=== PATIENT | male | born 1940 | race Caucasian/White ===

== ENCOUNTER 2024-02-20 18:31 | Inpatient (IN) | payer MEDICARE, OTHER, SELFPAY ==
[2024-02-20] VITALS (12 sets, daily range): BP systolic 98–129; BP diastolic 53–63; BMI 25.7
--- NOTE | 2024-02-20 09:33 | ED.GENMED ---
History of Present Illness
<MCKAY Schrader - Last Filed: 02/20/24 17:38>
General
Chief Complaint: Cold/Flu/URI Symptoms
Source: patient
Exam Limitations: none
Time Seen by Provider: 02/20/24 09:14
Nursing documentation reviewed up to this point in time: agreed with
Travel History
Have you had any contact with someone who has COVID-19?: No
Do you have any symptoms of coronavirus? Fever > 100 degrees, chills, cough, shortness of breath, sore throat, loss of taste or smell, muscle aches, or headache?: No
History of Present Illness
History of Present Illness:
Patient is an 83-year-old male with past medical history of COPD osteomyelitis of spine mitral valve issues CAD, high cholesterol ubg-kkknece-gbqounlzy diabetes, HiV presents to the ER for evaluation. Patient reports 6 days ago he started
lightheadedness weakness runny nose and cough. He has had subjective fevers complaining of chills and achiness. He wakes up in a sweat at night. He does have a nonproductive cough. He has had intermittent diarrhea. He reports he had 4 episodes
of liquid diarrhea last night. He also complains of pain to the right hip only when he lays on the right hip he is able to walk on the hip without difficulty. He was concerned about this hip because he does have a history of osteomyelitis in the
spine years ago. He lives part-time in [facility] part-time in [place] and has not been to this hospital previously.
He did a COVID test at home which was negative.
Review of Systems
<MCKAY Schrader - Last Filed: 02/20/24 17:38>
Review of Systems
Allergies reviewed?: Yes
All Other Systems: ROS reviewed and negative except as documented in HPI and ROS
Constitutional: Reports fever (subjective fevers ), fatigue and chills
EENT: Reports runny nose
Respiratory: Reports cough; Denies trouble breathing
Cardiac: Reports no symptoms
ABD/GI: Reports diarrhea
: Reports no symptoms
Musculoskeletal: Reports other (right hip pain )
Skin: Reports no symptoms
Neurological: Reports no symptoms
Psychiatric: Reports no symptoms
Phy Exam
<MCKAY Schrader - Last Filed: 02/20/24 17:38>
General Physical Exam
General Presentation: well appearing
General age: appears stated age
General Skin: warm and dry
General Habitus: normal
General Mental: alert
General Hydration: dry mucous membranes
Eye Exam
Eye Exam: PERRL and EOMI
Eye Exam General: PERRL: bilateral and EOM intact: bilateral
Pupil Exam: Bilateral: round and reactive
Cardiovascular Exam
Cardiovascular Exam: regular rate/rhythm, no murmur and normal peripheral pulses
Pulmonary Exam
Pulmonary Exam: lungs clear and no respiratory distress
Neurological Exam
Neurological Exam: alert and oriented x3
Musculoskeletal Exam
Musculoskeletal Exam: other (Full range of motion to right hip with no erythema to hip no pain)
Skin Exam
Skin Exam: normal color and warm/dry
Psychiatric Exam
Psychiatric Exam: normal mood/affect
Course
<MCKAY Schrader - Last Filed: 02/20/24 17:38>
Orders/Labs/Results
Orders:
Orders
02/20/24 09:34
Electrocardiogram (*1) Urgent
Reason for Study: Other
Other Reason for Exam: sepsis
Cardiac Monitoring- Treatment ONCE
EKG- Treatment ONCE
IV Insert/Care/Rem.- Treatment PRN
CR Chest - 2 Views Urgent
Comment:
Reason For Exam: cough /fever
02/20/24 09:36
0.9% Sodium Chloride 1000 ml [Nss] 1,000 ml IV BOLUS
02/20/24 09:41
COVID-19 Antigen Urgent
Source: Nasal Swab
Complete Blood Count/With Diff Urgent
Comprehensive Metabolic Panel Urgent
Lactic Acid Q4H
Comment: CANCEL 2nd LACTIC ACID IF 1st LACTIC ACID IS LESS THAN 2
Blood Culture Q30M
LIU Source: Blood/Venous
Specimen Description:
Influenza A+B Rapid Molecular Urgent
LIU Source: Nasal Swab
Specimen Description:
02/20/24 09:50
Blood Culture Q30M
LIU Source: Blood/Venous
Specimen Description:
02/20/24 12:07
CT Abd/pelvis W Iv Cont Urgent
Comment:
Reason For Exam: abd pain
02/20/24 12:14
Urinalysis Reflex To Culture Urgent
Date Specimen was Collected: 02/20/24
Time Specimen was Collected: 12:12
Urine Microscopic Reflex Cult Urgent
02/20/24 Dinner
Regular
At Your Request: Limited Participation
Does patient need a safe tray?: No
02/20/24 15:40
Troponin I Urgent
02/20/24 16:45
Azithromycin [Zithromax] 2,000 mg PO NOW STA
02/20/24 16:56
Gentamicin Sulfate [Gentamicin] 240 mg IM NOW STA
02/20/24 16:57
Ondansetron Injectable [Zofran] 4 mg IV NOW STA
02/20/24 17:36
Acetaminophen [Tylenol] 650 mg PO NOW STA
02/20/24 17:50
Admit/Transfer Patient As Directed
Co-Sign Provider:
Level of Care: Inpatient admission
Assign to:: Telemetry
Physician / Group: Mirsky/Hospitalist
Diagnosis: sepsis
Reason for Telemetry: Arrhythmia
Date to Stop Telemetry: 02/23/24
Time to Stop Telemetry: 11:00
Reason for Hospitalization: Sepsis
Expected length of stay greater than two midnights?: Yes
ELOS- Estimated Length of Stay in days: 4
I certify the patient meets the requirements for IP care: Yes
02/20/24 17:55
Code Status As Directed
Resuscitation Status: Do not resuscitate
Reached after discussion with pt or family/Healthcare POA: Yes
Decision communicated with: patient
DNR Bracelet Application ONCE
02/20/24 18:00
Aztreonam [Azactam] 2,000 mg IV Q8H
Sterile Water [Sterile Water For Injection] 10 ml IV Q8H
02/20/24 18:07
Blood Culture Urgent
LIU Source: Blood/Venous
Specimen Description:
02/20/24 18:08
Aztreonam [Azactam] 2,000 mg IV Q8H
MetroNIDAZOLE 500 MG/100 ML [Flagyl 500 mg] 100 ml IV Q8H
02/20/24 19:00
Flush (0.9% Sodium Chloride) [Flush (Nss)] See Dose Instructions IV PER PROTOCOL
02/20/24 20:00
MetroNIDAZOLE 500 MG/100 ML [Flagyl 500 mg] 100 ml IV Q8H
02/20/24 22:51
0.9% Sodium Chloride 1000 ml [Nss] 1,000 ml IV 80 mls/hr
Acetaminophen [Tylenol] 650 mg PO Q4HPRN PRN
Bisacodyl [Dulcolax] 10 mg RECTAL [id number] PRN
Docusate W/Senna [Senokot-S] 1 tablet PO BIDPRN PRN
Enoxaparin Sodium [Lovenox] 40 mg SC QPM
Ezetimibe [Zetia] 10 mg PO HS
Finasteride [Proscar] 5 mg PO HS
Morphine Sulfate 2 mg IV Q4HPRN PRN
Polyethylene Glycol Powder [Miralax] 17 grams PO DAILYPRN PRN
Tamsulosin [Flomax] 0.8 mg PO HS
Zolpidem Tartrate [Ambien] 10 mg PO HS
02/20/24 22:51
Consult Infectious Disease [INFECTIOUS DISEASE CONSULT] Routine
Consulting Provider: Wilfredo Magdaleno
Was physician already notified: Yes
Accucheck [Bedside Glucose Monitoring] As Directed
Frequency: AC&HS
Activity As Directed
Activity Level: Out of Bed-Early Mobility
Vital Signs As Directed
Frequency: Per unit guidelines
DX Deep Vein Thrombosis Video Routine
02/20/24 23:00
Fenofibrate 145 [Tricor] 145 mg PO HS
Rosuvastatin Calcium [Crestor] 10 mg PO HS
02/21/24 06:00
Echo 2D MMode Color/Doppler IN AM
Reason for Study: bacteremia with murmur
02/21/24 06:01
Complete Blood Count/With Diff IN AM
Comprehensive Metabolic Panel IN AM
ESR [Erythrocyte Sed Rate] IN AM
02/21/24 07:30
Insulin Aspart Corrective Mod [Novolog Flexpen-Moderate Resistance] See Protocol SC AC
02/21/24 08:00
Aspirin Low Dose EC [Aspir Low (Enteric Coated)] 81 mg PO DAILY
Budesonide/Formoterol 160/4.5 [Symbicort 160/4.5 Mcg Inhaler] 2 puff INH R BID
FOLic ACID [Folvite] 1 mg PO MoTuWeThFrSa@0800
Vit C/Vit E/Lutein/Min/[place]-3 [Ocuvite Softgel] 1 cap PO BID
02/21/24 18:00
[id number]-cgmejktd-ybbbqx ala [Odefsey] See Dose Instructions PO QPM
02/23/24 11:00
DC Protocol for Telemetry ONCE
Abnormal Lab Results
02/20/24 02/20/24 02/20/24
09:41 12:14 15:40
RBC 4.17 L 10^6/uL
(4.70-6.10)
Hct 37.9 L %
(39.0-52.0)
MCH 32.4 H pg
(27.0-31.0)
Plt Count 115 L 10^3/uL
(130-400)
Absolute Lymphs (auto) 1.0 L 10^3/uL
(1.2-3.4)
Absolute Monos (auto) 0.7 H 10^3/uL
(0.1-0.6)
Neutrophils % 77.3 H %
(42.2-75.2)
Lymphocytes % 13.2 L %
(20.5-51.1)
Sodium 134 L mmol/L
(135-145)
Carbon Dioxide 20 L mmol/L
(22-30)
BUN 25 H mg/dl
(9-20)
Glucose 143 H mg/dl
(70-99)
Troponin I 0.051 H* ng/ml
Total Protein 5.9 L g/dl
(6.3-8.2)
Albumin 3.4 L g/dl
(3.5-5.0)
Urine Ketones 1+ A
(Negative)
Ur Occult Blood Reflex Trace A
(Negative)
Urine Bacteria (Reflex) Few A
(Negative)
02/20/24 09:41
02/20/24 09:41
Vital Signs
Initial and Last Documented VS:
Initial Vital Signs
Temp Pulse Resp BP Pulse Ox
100.1 F 68 20 126/63 96
02/20/24 09:01 02/20/24 09:01 02/20/24 09:01 02/20/24 09:01 02/20/24 09:01
Last Documented Vital Signs
Temp Pulse Resp BP Pulse Ox
98.2 F 54 20 103/52 89
02/22/24 07:00 02/22/24 07:41 02/22/24 07:41 02/22/24 07:00 02/22/24 07:41
Shell Trim Tool Setter consulted with Physician
Shell Trim Tool Setter consulted with physician?: Yes
Name of Physician Consulted: Chrissy
<Kristi Lowe MD - Last Filed: 02/22/24 09:37>
Orders/Labs/Results
Orders:
Orders
02/20/24 09:34
Electrocardiogram (*1) Urgent
Reason for Study: Other
Other Reason for Exam: sepsis
Cardiac Monitoring- Treatment ONCE
EKG- Treatment ONCE
IV Insert/Care/Rem.- Treatment PRN
CR Chest - 2 Views Urgent
Comment:
Reason For Exam: cough /fever
02/20/24 09:36
0.9% Sodium Chloride 1000 ml [Nss] 1,000 ml IV BOLUS
02/20/24 09:41
COVID-19 Antigen Urgent
Source: Nasal Swab
Complete Blood Count/With Diff Urgent
Comprehensive Metabolic Panel Urgent
Lactic Acid Q4H
Comment: CANCEL 2nd LACTIC ACID IF 1st LACTIC ACID IS LESS THAN 2
Blood Culture Q30M
LIU Source: Blood/Venous
Specimen Description:
Influenza A+B Rapid Molecular Urgent
LIU Source: Nasal Swab
Specimen Description:
02/20/24 09:50
Blood Culture Q30M
LIU Source: Blood/Venous
Specimen Description:
02/20/24 12:07
CT Abd/pelvis W Iv Cont Urgent
Comment:
Reason For Exam: abd pain
02/20/24 12:14
Urinalysis Reflex To Culture Urgent
Date Specimen was Collected: 02/20/24
Time Specimen was Collected: 12:12
Urine Microscopic Reflex Cult Urgent
02/20/24 Dinner
Regular
At Your Request: Limited Participation
Does patient need a safe tray?: No
02/20/24 15:40
Troponin I Urgent
02/20/24 16:45
Azithromycin [Zithromax] 2,000 mg PO NOW STA
02/20/24 16:56
Gentamicin Sulfate [Gentamicin] 240 mg IM NOW STA
02/20/24 16:57
Ondansetron Injectable [Zofran] 4 mg IV NOW STA
02/20/24 17:36
Acetaminophen [Tylenol] 650 mg PO NOW STA
02/20/24 17:50
Admit/Transfer Patient As Directed
Co-Sign Provider:
Level of Care: Inpatient admission
Assign to:: Telemetry
Physician / Group: Mirsky/Hospitalist
Diagnosis: sepsis
Reason for Telemetry: Arrhythmia
Date to Stop Telemetry: 02/23/24
Time to Stop Telemetry: 11:00
Reason for Hospitalization: Sepsis
Expected length of stay greater than two midnights?: Yes
ELOS- Estimated Length of Stay in days: 4
I certify the patient meets the requirements for IP care: Yes
02/20/24 17:55
Code Status As Directed
Resuscitation Status: Do not resuscitate
Reached after discussion with pt or family/Healthcare POA: Yes
Decision communicated with: patient
DNR Bracelet Application ONCE
02/20/24 18:00
Aztreonam [Azactam] 2,000 mg IV Q8H
Sterile Water [Sterile Water For Injection] 10 ml IV Q8H
02/20/24 18:07
Blood Culture Urgent
LIU Source: Blood/Venous
Specimen Description:
02/20/24 18:08
Aztreonam [Azactam] 2,000 mg IV Q8H
MetroNIDAZOLE 500 MG/100 ML [Flagyl 500 mg] 100 ml IV Q8H
02/20/24 19:00
Flush (0.9% Sodium Chloride) [Flush (Nss)] See Dose Instructions IV PER PROTOCOL
02/20/24 20:00
MetroNIDAZOLE 500 MG/100 ML [Flagyl 500 mg] 100 ml IV Q8H
02/20/24 22:51
0.9% Sodium Chloride 1000 ml [Nss] 1,000 ml IV 80 mls/hr
Acetaminophen [Tylenol] 650 mg PO Q4HPRN PRN
Bisacodyl [Dulcolax] 10 mg RECTAL [id number] PRN
Docusate W/Senna [Senokot-S] 1 tablet PO BIDPRN PRN
Enoxaparin Sodium [Lovenox] 40 mg SC QPM
Ezetimibe [Zetia] 10 mg PO HS
Finasteride [Proscar] 5 mg PO HS
Morphine Sulfate 2 mg IV Q4HPRN PRN
Polyethylene Glycol Powder [Miralax] 17 grams PO DAILYPRN PRN
Tamsulosin [Flomax] 0.8 mg PO HS
Zolpidem Tartrate [Ambien] 10 mg PO HS
02/20/24 22:51
Consult Infectious Disease [INFECTIOUS DISEASE CONSULT] Routine
Consulting Provider: Wilfredo Magdaleno
Was physician already notified: Yes
Accucheck [Bedside Glucose Monitoring] As Directed
Frequency: AC&HS
Activity As Directed
Activity Level: Out of Bed-Early Mobility
Vital Signs As Directed
Frequency: Per unit guidelines
DX Deep Vein Thrombosis Video Routine
02/20/24 23:00
Fenofibrate 145 [Tricor] 145 mg PO HS
Rosuvastatin Calcium [Crestor] 10 mg PO HS
02/21/24 06:00
Echo 2D MMode Color/Doppler IN AM
Reason for Study: bacteremia with murmur
02/21/24 06:01
Complete Blood Count/With Diff IN AM
Comprehensive Metabolic Panel IN AM
ESR [Erythrocyte Sed Rate] IN AM
02/21/24 07:30
Insulin Aspart Corrective Mod [Novolog Flexpen-Moderate Resistance] See Protocol SC AC
02/21/24 08:00
Aspirin Low Dose EC [Aspir Low (Enteric Coated)] 81 mg PO DAILY
Budesonide/Formoterol 160/4.5 [Symbicort 160/4.5 Mcg Inhaler] 2 puff INH R BID
FOLic ACID [Folvite] 1 mg PO MoTuWeThFrSa@0800
Vit C/Vit E/Lutein/Min/[place]-3 [Ocuvite Softgel] 1 cap PO BID
02/21/24 18:00
lurlmqaiwt-kazovfpb-cuanrp ala [Odefsey] See Dose Instructions PO QPM
02/23/24 11:00
DC Protocol for Telemetry ONCE
Abnormal Lab Results
02/20/24 02/20/24 02/20/24
09:41 12:14 15:40
RBC 4.17 L 10^6/uL
(4.70-6.10)
Hct 37.9 L %
(39.0-52.0)
MCH 32.4 H pg
(27.0-31.0)
Plt Count 115 L 10^3/uL
(130-400)
Absolute Lymphs (auto) 1.0 L 10^3/uL
(1.2-3.4)
Absolute Monos (auto) 0.7 H 10^3/uL
(0.1-0.6)
Neutrophils % 77.3 H %
(42.2-75.2)
Lymphocytes % 13.2 L %
(20.5-51.1)
Sodium 134 L mmol/L
(135-145)
Carbon Dioxide 20 L mmol/L
(22-30)
BUN 25 H mg/dl
(9-20)
Glucose 143 H mg/dl
(70-99)
Troponin I 0.051 H* ng/ml
Total Protein 5.9 L g/dl
(6.3-8.2)
Albumin 3.4 L g/dl
(3.5-5.0)
Urine Ketones 1+ A
(Negative)
Ur Occult Blood Reflex Trace A
(Negative)
Urine Bacteria (Reflex) Few A
(Negative)
02/20/24 09:41
02/20/24 09:41
Vital Signs
Initial and Last Documented VS:
Initial Vital Signs
Temp Pulse Resp BP Pulse Ox
100.1 F 68 20 126/63 96
02/20/24 09:01 02/20/24 09:01 02/20/24 09:01 02/20/24 09:01 02/20/24 09:01
Last Documented Vital Signs
Temp Pulse Resp BP Pulse Ox
98.2 F 54 20 103/52 89
02/22/24 07:00 02/22/24 07:41 02/22/24 07:41 02/22/24 07:00 02/22/24 07:41
<MCKAY Schrader - Last Filed: 02/20/24 17:38>
MDM/Problems Addressed
Differential Diagnosis Includes:
not limited to: Viral syndrome, COVID, flu, pneumonia, CHF, CAD, diverticulitis
MDM/Problems Addressed:
Patient is an 83-year-old male with past medical history of COPD HIV with levels undetected CAD medically managed hyperlipidemia diabetes who lives in [place] part-time in [place] part-time presents to the ER for evaluation of fever chills
runny nose cough lower abdominal discomfort diarrhea for the past several days. He also had some right hip pain only with laying on the right hip. He took a COVID test and which was negative. He presents here awake alert no acute distress
low-grade temperature however lungs are clear no tachycardia. Patient's white count is normal at 7.8 with normal lactic acid. Chest x-ray negative.
PT had not nonspecific mild abdominal tenderness and so CAT scan was ordered which does show mild proctitis. Patient reports he is not sexually active denies any rectal discomfort or pain. On exam there is no rectal lesions or drainage he also
reports he is not currently sexually active. Case discussed with Dr. Lowe for findings of proctitis with HIV status we will treat with Rocephin and doxycycline. Patient had no complaints of chest pain however does have LAD plaque and reports that
his echo technician in [place] recommended either bypass surgery or stent but he declined and is medically managing. He does follow with his echo technician in [place] every [address] [place] to establish a local physician while he is in
[place] 6 months of the year.
Though no CP pt does complain of feeling short winded .
1736:PT being evaluated by DR Dumont he will order antibx so I cancelled my zmax/gent.
<MCKAY Schrader - Last Filed: 02/20/24 17:38>
*Radiology
Radiology exam reviewed: radiology read reviewed
*Pulse Oximetry
Patient hypoxic: yes
*EKG
Interpreted by ED Provider?: Yes
Heart Rate: 62
Rate: normal
Rhythm: sinus
Ischemia: no ischemia
*Critical Care Note
Total Time (30-74mins, 75-104mins- exclusive of procedures): Not Applicable
ED Attending Note
<MCKAY Schrader - Last Filed: 02/20/24 17:38>
-
Portions of this chart may have been created with voice recognition software.� Occasional wrong word or��sound alike� substitutions may have occurred due to the inherent limitations of voice recognition software.
<Kristi Lowe MD - Last Filed: 02/22/24 09:37>
ED Attending Note
Patient seen and examined by attending physician: Yes
I performed the substantive portion of visit, reviewed & personally made and approve the management plan that is documented in note by myself or BALWINDER.: Yes
ED Attending Note:
83-year-old male who says that for the last couple days he has had 'cold' symptoms including cough, rhinorrhea, and mild shortness of breath. Then, last night he had shaking chills and sweats followed by an episode of very loose large-volume stools
without blood or mucus. Today he says he feels 'better than yesterday', but notes generalized fatigue mild headache, and lower abdominal discomfort which is minimal. He is hungry, denies anorexia, nausea, vomiting. On exam, abdomen soft and
nontender, heart regular rate and rhythm, lungs CTA, oropharynx slightly dry. Suspect symptoms related to an infectious process, likely viral, no pneumonia, UTI, focal abdominal findings. Exam not suggestive of other source. Influenza and
COVID-negative. Culture sent to assess for the unlikely possibility of bacteremia. Vital signs stable, pulse ox within normal limits even with ambulation here. Patient stable for discharge with close follow-up. (Late entry: given pts elevated
troponin, will admit. blood cxs pending.)
Discharge Plan
Departure
Patient Disposition: Admit
Date of Disposition: 02/20/24
Time of Disposition: 16:48
Admit to: Telemetry
Admit to doctor: hospitalist
Presentation/result/management discussed w/ accepting MD/DO: Hospitalist
Patient with high blood pressure during this ER visit?: No
Condition: Fair
Covid-19: Not Applicable
Discharge Problem:
Acute dyspnea, Elevated troponin, Acute proctitis
Interventions
Interventions:
*Risk Screen - Suicide Last Done: 02/20/24 09:37
*General Assessment Last Done: 02/20/24 09:37
*Neglect/Abuse Screening Last Done: 02/20/24 09:37
ED- Fall Risk Assessment Last Done: 02/20/24 09:53
*ED COVID-19 Vaccine History Last Done: 02/20/24 09:37
*Nursing Disposition Last Done: 02/20/24 23:11
ED- Pulmonary Assessment Last Done: 02/20/24 09:53
[2024-02-20] MEDS: NSS 1000 IV ×2 (09:52→23:36)
[2024-02-20 10:14] LABS: % Basophils 0.1 % (0-2); % Immature Granulocytes 0.4 % (0-0.5); % Lymphocytes 13.2 % (20.5-51.1); % Neutrophils 77.3 % (42.2-75.2); Absolute Monocytes 0.7 10^3/uL (0.1-0.6); Hematocrit 37.9 % (39.0-52.0); Hemoglobin 13.5 g/dL (13.0-18.0); Mean Corp Hgb Conc. 35.6 g/dL (33.0-37.0); Mean Corpuscular Hgb 32.4 pg (27.0-31.0); Mean Corpuscular Volume 90.9 fL (80.0-94.0); Nucleated Red Blood Cells % 0 % (-); Red Blood Cell Count 4.17 10^6/uL (4.70-6.10); Red Cell Dist. Width 14.4 % (11.5-14.5); White Blood Cell Count 7.8 10^3/uL (4.8-10.8)
[2024-02-20 10:17] LABS: ALT (SGPT) 42 U/L (0-50); AST (SGOT) 53 U/L (17-59); Albumin 3.4 g/dl (3.5-5.0); Alkaline Phosphatase 118 U/L (38-126); Blood Urea Nitrogen 25 mg/dl (9-20); Calcium 8.9 mg/dl (8.4-10.2); Carbon Dioxide 20 mmol/L (22-30); Chloride 105 mmol/L (98-107); Estimated Creatinine Clearance 49 ml/min; Glucose 143 mg/dl (70-99); Potassium 4.1 mmol/L (3.5-5.1); Sodium 134 mmol/L (135-145); Total Bilirubin 1.3 mg/dl (0.2-1.3); Total Protein 5.9 g/dl (6.3-8.2); eGFR 55.19
[2024-02-20 10:22] LABS: COVID-19 Antigen Negative (Negative)
[2024-02-20 11:07] LABS: Platelet Count 115 10^3/uL (130-400)
[2024-02-20 11:08] LABS: Mean Platelet Volume 9.8 fL (7.4-10.4)
[2024-02-20 12:23] LABS: Urine Albumin Trace (Neg - Trace); Urine Bilirubin Negative (Negative); Urine Character Clear (Clear); Urine Color Yellow; Urine Glucose Negative (Negative); Urine Ketone 1+ (Negative); Urine Leukocyte Negative (Negative); Urine Nitrite Negative (Negative); Urine Occult Blood Trace (Negative); Urine Urobilinogen Negative (Neg - 1+)
[2024-02-20 12:29] LABS: Urine Mucus Many; Urine Squamous Cell 0-2 /LPF (Few); Urine Urothelial Cell 0-2 /LPF (FEW)
[2024-02-20 12:30] LABS: Urine Bacteria Few (Negative); Urine Granular Cast 0-2 /LPF (0); Urine Red Blood Cell 0-2 /HPF (0-2); Urine White Cell 0-2 /HPF (0-5)
[2024-02-20 16:23] LABS: Troponin I 0.051 ng/ml
[2024-02-20] MEDS: TYLENOL 650 MG PO (18:00)
--- NOTE | 2024-02-20 18:03 | W.PN.HOSP.TC ---
Today's Communication/Plan
-
Blood Cx
empiric abx
Assessment / Plan
Assessment / Plan
6 day hx of rigors/chills that has worsened. Drenching sweats at night, intermittent diarrhea, rt hip pain/tenderness
unclear etiology to explain symptoms, concern for bacteremia, though with nl WBC and low grade fever
Hx of HIV for ~25 yrs
states he is compliant with his medication and has normal T-Cell counts
Hx of osteomyelitis of spine years ago
NIDDM
Abdominal pain/tenderness across upper abd
?related to diverticulosis
CT scan abd: 1. Mild circumferential wall thickening in the rectum suspicious for a mild proctitis.
2. Severe colonic diverticulosis (greatest in the sigmoid colon).
3. Mild hepatic cirrhosis.
4. Moderate diffuse hepatic steatosis.
5. Mild splenomegaly containing multiple small low-attenuation lesions (more likely benign than malignancy such as lymphoma).
6. Moderate extrahepatic biliary dilatation.
7. Cholelithiasis.
8. Mild chronic bilateral renal disease.
9. 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
Anaphylactic rxn to PCN
abx ordered, will consult ID, discussed with Dr. Magdaleno
P:IVF
empiric abx
requested another set of blood cx now due to episode of rigors
DNR
see dictated note
Anticipated Discharge: > 48 hours
Subjective/Interval History
-
Date of Service: February 20, 2024
6 day hx of worsening shaking chills, lightheadedness, weakness and night time drenching sweats
Objective Data
-
Labs:
Laboratory Results
02/20/24
09:41
WBC 7.8
Hgb 13.5
Hct 37.9 L
Plt Count 115 L
Sodium 134 L
Potassium 4.1
Chloride 105
Carbon Dioxide 20 L
BUN 25 H
Creatinine 1.3
Glucose 143 H
Calcium 8.9
Total Bilirubin 1.3
AST 53
ALT 42
Alkaline Phosphatase 118
Vital Signs:
Vital Signs
Temp Pulse Resp BP Pulse Ox
100.1 F 64 31 119/55 93
02/20/24 09:01 02/20/24 16:15 02/20/24 16:15 02/20/24 16:00 02/20/24 16:15
Review of Systems
-
History Source: Patient and Coordinated Provider
Constitutional: Reports Fever (100.1)
EENT: Reports No Symptoms Reported
Respiratory: Reports No Symptoms; Denies Cough
Cardiac: Reports No Symptoms; Denies Chest Pain
Abdomen/GI: Reports Abdominal Pain (mid abdomen) and Diarrhea (intermittent)
Genitourinary: Denies Dysuria
Musculoskeletal: Reports Joint Pain (rt hip)
Physical Exam
-
General: Well Developed, Well Nourished, Appears in Distress and Chills (rigors)
HEENT: Normocephalic, Atraumatic and Moist Mucous Membranes
Respiratory: Wheezes (mid-end expiratory wheeze)
Cardiac: Regular Rhythm, S1/S2 and Murmur (3/6 systolic m)
GI: Soft, Nontender, Nondistended and Normal Bowel Sounds
Musculoskeletal: No Clubbing, No Cyanosis and No Edema
Skin: Warm
Neuro: Awake, Alert and Oriented
[2024-02-20] MEDS: AZACTAM 2000 MG IV (18:37)
[2024-02-20] MEDS: STERILE WATER FOR INJECTION 10 ML IV (18:37)
[2024-02-20] MEDS: FLAGYL 500 MG 100 IV (18:48)
[2024-02-20] MEDS: CRESTOR 10 MG PO (23:34)
[2024-02-20] MEDS: FLOMAX 0.800000000000000044 MG PO (23:34)
[2024-02-20] MEDS: ZETIA 10 MG PO (23:34)
[2024-02-20] MEDS: TRICOR 145 MG PO (23:34)
[2024-02-20] MEDS: PROSCAR 5 MG PO (23:35)
[2024-02-20] MEDS: VANCOCIN 540 MG IV (23:35)
[2024-02-20 23:48] LABS: Glucose - Point of Care 152 mg/dl (70-99)
[2024-02-21] VITALS (12 sets, daily range): BP systolic 102–140; BP diastolic 54–74
[2024-02-21] MEDS: AZACTAM 2000 MG IV ×3 (02:31→18:19)
[2024-02-21] MEDS: STERILE WATER FOR INJECTION 10 ML IV ×3 (02:32→18:19)
[2024-02-21] MEDS: FLAGYL 500 MG 100 IV ×3 (04:45→21:23)
[2024-02-21 06:27] LABS: % Basophils 0.1 % (0-2); % Immature Granulocytes 0.4 % (0-0.5); % Lymphocytes 16.3 % (20.5-51.1); % Monocytes 7.9 % (1.7-9.3); % Neutrophils 75.3 % (42.2-75.2); Absolute Lymphocytes 1.1 10^3/uL (1.2-3.4); Absolute Monocytes 0.5 10^3/uL (0.1-0.6); Hematocrit 39.2 % (39.0-52.0); Hemoglobin 13.7 g/dL (13.0-18.0); Mean Corp Hgb Conc. 34.9 g/dL (33.0-37.0); Mean Corpuscular Hgb 32.6 pg (27.0-31.0); Mean Corpuscular Volume 93.3 fL (80.0-94.0); Mean Platelet Volume 9.4 fL (7.4-10.4); Nucleated Red Blood Cells % 0 % (-); Platelet Count 105 10^3/uL (130-400); Red Cell Dist. Width 14.6 % (11.5-14.5); White Blood Cell Count 6.7 10^3/uL (4.8-10.8)
[2024-02-21 06:56] LABS: ALT (SGPT) 56 U/L (0-50); AST (SGOT) 87 U/L (17-59); Albumin 3.3 g/dl (3.5-5.0); Alkaline Phosphatase 101 U/L (38-126); Blood Urea Nitrogen 23 mg/dl (9-20); Calcium 8.9 mg/dl (8.4-10.2); Carbon Dioxide 20 mmol/L (22-30); Chloride 107 mmol/L (98-107); Estimated Creatinine Clearance 64 ml/min; Glucose 120 mg/dl (70-99); Potassium 4.7 mmol/L (3.5-5.1); Sodium 137 mmol/L (135-145); Total Bilirubin 1.4 mg/dl (0.2-1.3); Total Protein 6.1 g/dl (6.3-8.2); eGFR > 60.00
[2024-02-21 07:15] LABS: Glucose - Point of Care 110 mg/dl (70-99)
[2024-02-21] MEDS: SYMBICORT 160/4.5 MCG INHALER 2 PUFF INH ×2 (07:32→20:13)
[2024-02-21] MEDS: DUONEB 3 ML INH ×2 (07:42→13:51)
[2024-02-21 07:51] LABS: Erythrocyte Sed Rate 51 mm/hour (0-20)
[2024-02-21] MEDS: ASPIR LOW (ENTERIC COATED) 81 MG PO (10:30)
[2024-02-21] MEDS: OCUVITE SOFTGEL 1 CAP PO ×2 (10:30→21:22)
--- NOTE | 2024-02-21 11:15 | CON.ID ---
Consultation
-
Date/Time Consultation Requested: 02/20/24 22:51
Date/Time Consultation Performed: 02/20/24 11:15
Requesting Provider: Dr Dumont
Performing Provider: Dr Boyce
Reason for Consultation: anaphylaxis to penicillin
Chief Complaint / Past History
Chief Complaint
night sweat, subjective fevers, diarrhea
History of Present Illness
Mr Cortés is an 83 year old male living with HIV on [place] last CD4 678, VL suppressed and has been suppressed for many years, [employer] [facility] Escam[facility] in [facility], h/o rectal warts (treated), additional history notable for osteomyelitis of the
lumbar spine ~3 years ago s/p 10 weeks of IV vancomycin, COPD, DM2, Psoriasis on MTX (no injectables or recent systemic steroids) who presented here last night for a 6 day history of subjective fevers, chills, malaise, night sweats, nonproductive
cough/runny nose, intermittent diarrhea. Of note also with pain in the right hip which is positional - only when he lays on it. Also of note had some constipation and tenesmus about 2 weeks ago (1 week before onset of these symptoms) that fully
resolved. Reports neither he nor his have not been sexually active for years. He has a history of treated anal warts.
He lives part-time in [facility] part-time in [place] and has not been to this hospital previously.
He did a COVID test at home which was negative.
Since arrival here tmax 100.1, bp stable, without leukocytosis, esr 51, cr 1.0 stable, t bili 1.4, ast 87, alt 56, alk phos 101, a1c pending, ua no pyuria, covid ag neg, CXR: no evidence of pneumonia, CT a/p suggestion of proctitis, severe
diverticulosis, severe calcific atherosclerotic plaque, xray hip djd, blood cultures x3 E coli
Past History
Additional Past Medical History:
CAD
DM2
HLD
Additional Past Surgical History:
no recent major surgeries reported
Allergy History:
Penicillins Allergy (Severe, Verified 02/20/24 09:01)
Anaphylaxis
tetracycline Allergy (Intermediate, Verified 02/20/24 09:01)
Rash
Medications Reviewed: Yes
Social History
Tobacco: Former Smoker
Alcohol: Occasional
Personal:
Family History
Family History: Not Pertinent
Review of Systems
Review of Systems
General: Fever and Chills
All systems: All other systems were reviewed and were negative
Vital Signs
Temp Pulse Resp BP Pulse Ox
97.8 F 100 24 127/66 94
02/20/24 21:42 02/21/24 07:44 02/21/24 07:44 02/21/24 06:00 02/21/24 07:44
Physical Exam
Physical Exam
Constitutional: No Acute Distress
Cardiovascular: Regular Rate and S1/S2; Negative Murmur or Rub
Pulmonary: Clear and Symmetric; Negative Wheezes, Rales or Rhonchi
Gastrointestinal: Soft, Non Tender, Non Distended and Normal Bowel Sounds
Genito-Urinary: Other (rectal exam: mildly tender, prostate without nodules, mildly enlarged, no hemorrhoids or warts)
Skin: Warm and Dry; Negative Rash or Jaundice
Lab / Diagnostic Study Results
02/21/24 06:01
02/21/24 06:01
Abs Immat Gran (auto) 0.0 10^3/uL (0-0.05) 02/21/24 06:01
Absolute Neuts (auto) 5.0 10^3/uL (1.4-6.5) 02/21/24 06:01
Absolute Lymphs (auto) 1.1 10^3/uL (1.2-3.4) L 02/21/24 06:01
Absolute Monos (auto) 0.5 10^3/uL (0.1-0.6) 02/21/24 06:01
Absolute Basos (auto) 0.0 10^3/uL (0-0.2) 02/21/24 06:01
Immature Gran % 0.4 % (0-0.5) 02/21/24 06:01
Neutrophils % 75.3 % (42.2-75.2) H 02/21/24 06:01
Lymphocytes % 16.3 % (20.5-51.1) L 02/21/24 06:01
Monocytes % 7.9 % (1.7-9.3) 02/21/24 06:01
Eosinophils % 0.0 % (0-6) 02/21/24 06:01
Basophils % 0.1 % (0-2) 02/21/24 06:01
ESR 51 mm/hour (0-20) H 02/21/24 06:01
Lactic Acid Cancelled 02/20/24 16:00
Ur Squamous Epith Cells 0-2 /LPF (Few) 02/20/24 12:14
Microbiology Results
Micro:
02/20/24 09:41 Blood Culture - Preliminary
Blood/Venous Escherichia coli
Gram Stain - Preliminary
02/20/24 18:07 Blood Culture - Preliminary
Blood/Venous Positive culture in progress
Gram Stain - Final
02/20/24 09:50 Blood Culture - Preliminary
Blood/Venous Positive culture in progress
Gram Stain - Preliminary
02/20/24 09:41 Influenza Types A & B (LAURE) - Final
Nasal Swab Negative for Influenza A & B, NAAT
Negative results must be combined with clinical observations
and patient history.
Nucleic Acid Amplification test (NAAT)performed on the
[employer] platform.
Assessment / Plan
E coli bacteremia
Proctitis
- remote history of treated genital warts
Diverticulosis without diverticulitis
HIV - last CD4 10/13: 678, VL undetectable
cleared Hep B, Hep C negative; hep A neg
Possible cirrhosis
Remote history of Lumbar osteomylitis
Reported history of anaphylaxis to penicillin decades ago
- E coli bacteremia noted
- will need to ensure it is not persistent given remote history of osteomyelitis and I suspect endocarditis
- repeat blood cultures x2 in the AM
- will clarify with patient endocarditis history; note calcified mitral valve lesion - no evidence of active infection at this time
- suspect source of bacteremia is proctitis; no lesions on ELVER
- plan outpatient high res anoscopy after this admission - he has not had anal pap x years and does have h/o genital warts
- CT without other lesions
- continue broad spectrum rx: vancomycin, aztreonam, metronidazole
- QTc acceptable, E coli resistance to quinolones is higher in other regions, I am not certain how prevalent it is in his second home in [place]
- no need for STI screening as abrahan hinson
Care Review
Plan reviewed with: Physician
[2024-02-21 12:10] LABS: Glycohemoglobin (HgbA1c) 7.6 % (4.0-5.6)
[2024-02-21 12:47] LABS: Glucose - Point of Care 133 mg/dl (70-99)
--- NOTE | 2024-02-21 13:44 | W.PN.HOSP.TC ---
Today's Communication/Plan
-
Monitor vital signs see plan
Continue antibiotics
Check new sets of blood culture
Monitor LFTs
Check troponin
Assessment / Plan
Assessment / Plan
CT scan abd: 1. Mild circumferential wall thickening in the rectum suspicious for a mild proctitis.
2. Severe colonic diverticulosis (greatest in the sigmoid colon).
3. Mild hepatic cirrhosis.
4. Moderate diffuse hepatic steatosis.
5. Mild splenomegaly containing multiple small low-attenuation lesions (more likely benign than malignancy such as lymphoma).
6. Moderate extrahepatic biliary dilatation.
7. Cholelithiasis.
8. Mild chronic bilateral renal disease.
9. 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
Sepsis secondary to E. coli bacteremia
Possible source proctitis
Repeat blood cultures
Current blood culture with E. coli, pending sensitivities
ID following
monitor LFT's. no concern for biliary source at this time; per patient his abdominal pain is getting better. Could also be secondary from proctitis
Hx of HIV for ~25 yrs
states he is compliant with his medication and has normal T-Cell counts
last CD4 10/13: 678, VL undetectable
cleared Hep B, Hep C negative; hep A neg
Hx of osteomyelitis of spine years ago
NIDDM
Standing scale, Accu-Cheks
A1c 7.6
Elevated troponin, likely nonischemic myocardial injury
Trend
History of possible cirrhosis
History of rheumatoid arthritis
BPH
Continue tamsulosin
Anaphylactic rxn to PCN
DVTppx
Lovenox
DNR
I spent a total of 52 minutes with the patient or on the floor. More than 50% of this time involved counseling and coordination of care.
Anticipated Discharge: > 48 hours
Subjective/Interval History
-
Date of Service: February 21, 2024
denies pain
Objective Data
-
Labs:
Laboratory Results
02/21/24
06:01
WBC 6.7
Hgb 13.7
Hct 39.2
Plt Count 105 L
Sodium 137
Potassium 4.7
Chloride 107
Carbon Dioxide 20 L
BUN 23 H
Creatinine 1.0
Glucose 120 H
Calcium 8.9
Total Bilirubin 1.4 H
AST 87 H
ALT 56 H
Alkaline Phosphatase 101
Vital Signs:
Vital Signs
Temp Pulse Resp BP Pulse Ox
98.5 F 69 14 114/67 93
02/21/24 12:30 02/21/24 12:30 02/21/24 12:30 02/21/24 12:30 02/21/24 12:30
Physical Exam
-
General: No Apparent Distress and Comfortable
HEENT: Normocephalic, Atraumatic and Moist Mucous Membranes
Respiratory: Clear to Auscultation; Negative Wheezes
Cardiac: Regular Rhythm and S1/S2
Breast: Deferred by me
GI: Soft
Rectal: Deferred by Provider
Genito-urinary: Negative Lowe
Musculoskeletal: No Edema
Neuro: Awake, Alert, Oriented and AO x 3
Psych: Calm
--- NOTE | 2024-02-21 15:17 | PHA.VAN.IN ---
Assessment
- Assessment
Renal Function: Unknown baseline (SCR trending down from admission 1.3-->1)
Concomitant Antimicrobials: aztreonam, metronidazole
Plan
- Plan
Initial / Loading Dose: 2000mg - 02/19 23:35
Maintenance Regimen: dosing by level with unstable renal function and unknown baseline SCR
Monitoring: random 02/21 0600
give additional 750mg x1 at 1800
Pharmacokinetics Vancomycin I
- -
Patient Age: 83
Patient Sex: Male
Vancomycin Day #: 1
Indication: Bacteremia
Requesting Provider: Dr. Dumont / Carli
Pertinent Antimicrobial Allergies:
penicillins - anaphylaxis
tetracyclines - rash
Height / Weight:
Height 6 ft
Actual Weight 86 kg
Pertinent Past Medical History: HIV, DM2
- Vital Signs / Lab Results
Temp Pulse Resp BP Pulse Ox
98.5 F 69 14 114/67 93
02/21/24 12:30 02/21/24 12:30 02/21/24 12:30 02/21/24 12:30 02/21/24 12:30
Lab Results - Hematology
02/20/24 02/21/24
09:41 06:01
WBC 7.8 6.7
Lab Results - Chemistry
02/20/24 02/21/24
09:41 06:01
BUN 25 H 23 H
Creatinine 1.3 1.0
Estimated Creat Clear 49 64
Albumin 3.4 L 3.3 L
02/20/24 02/20/24 02/20/24
09:41 13:45 16:00
Lactic Acid 1.0 Cancelled Cancelled
Lab Results - Urine
02/20/24
12:14
Urine Nitrite (Reflex) Negative
Leukocyte Esterase Rfl Negative
Urine WBC (Reflex) 0-2
Ur Squamous Epith Cells 0-2
Urine Bacteria (Reflex) Few A
Microbiology Results
02/20/24 09:50 Blood Culture - Preliminary
Blood/Venous Escherichia coli
Gram Stain - Preliminary
02/20/24 09:41 Blood Culture - Preliminary
Blood/Venous Escherichia coli
Gram Stain - Preliminary
02/20/24 18:07 Blood Culture - Preliminary
Blood/Venous Positive culture in progress
Gram Stain - Final
02/20/24 09:41 Influenza Types A & B (LAURE) - Final
Nasal Swab Negative for Influenza A & B, NAAT
Negative results must be combined with clinical observations
and patient history.
Nucleic Acid Amplification test (NAAT)performed on the
[employer] platform.
[2024-02-21 15:23] LABS: Troponin I 0.031 ng/ml
[2024-02-21] MEDS: NON-FORMULARY ITEM 1 TABLET PO (18:17)
[2024-02-21] MEDS: NSS 1000 IV (18:19)
[2024-02-21] MEDS: VANCOCIN 150 IV (18:20)
[2024-02-21] MEDS: FLOMAX 0.800000000000000044 MG PO (21:22)
[2024-02-21] MEDS: CRESTOR 10 MG PO (21:22)
[2024-02-21] MEDS: TRICOR 145 MG PO (22:28)
[2024-02-21] MEDS: PROSCAR 5 MG PO (22:28)
[2024-02-21] MEDS: ZETIA 10 MG PO (22:28)
[2024-02-21] MEDS: NSS IV (23:55)
[2024-02-22] VITALS (11 sets, daily range): BP systolic 100–119; BP diastolic 51–68
[2024-02-22] MEDS: DUONEB 3 ML INH ×3 (00:12→17:57)
[2024-02-22] MEDS: AZACTAM 2000 MG IV (01:56)
[2024-02-22] MEDS: STERILE WATER FOR INJECTION 10 ML IV (02:00)
[2024-02-22] MEDS: FLAGYL 500 MG 100 IV (04:25)
[2024-02-22 06:01] LABS: % Basophils 0.2 % (0-2); % Eosinophils 0.5 % (0-6); % Immature Granulocytes 0.4 % (0-0.5); % Lymphocytes 16.8 % (20.5-51.1); % Monocytes 7.4 % (1.7-9.3); % Neutrophils 74.7 % (42.2-75.2); Absolute Lymphocytes 0.9 10^3/uL (1.2-3.4); Absolute Monocytes 0.4 10^3/uL (0.1-0.6); Absolute Neutrophils 4.1 10^3/uL (1.4-6.5); Hematocrit 33.2 % (39.0-52.0); Hemoglobin 11.9 g/dL (13.0-18.0); Mean Corp Hgb Conc. 35.8 g/dL (33.0-37.0); Mean Corpuscular Hgb 32.7 pg (27.0-31.0); Mean Corpuscular Volume 91.2 fL (80.0-94.0); Mean Platelet Volume 10.2 fL (7.4-10.4); Nucleated Red Blood Cells % 0 % (-); Platelet Count 112 10^3/uL (130-400); Red Blood Cell Count 3.64 10^6/uL (4.70-6.10); Red Cell Dist. Width 14.6 % (11.5-14.5); White Blood Cell Count 5.5 10^3/uL (4.8-10.8)
[2024-02-22 06:22] LABS: ALT (SGPT) 47 U/L (0-50); AST (SGOT) 53 U/L (17-59); Albumin 2.6 g/dl (3.5-5.0); Alkaline Phosphatase 137 U/L (38-126); Blood Urea Nitrogen 20 mg/dl (9-20); Calcium 8.3 mg/dl (8.4-10.2); Carbon Dioxide 19 mmol/L (22-30); Chloride 109 mmol/L (98-107); Estimated Creatinine Clearance 71 ml/min; Glucose 136 mg/dl (70-99); Potassium 3.8 mmol/L (3.5-5.1); Sodium 136 mmol/L (135-145); Total Bilirubin 0.8 mg/dl (0.2-1.3); Total Protein 4.9 g/dl (6.3-8.2); eGFR > 60.00
[2024-02-22] MEDS: SYMBICORT 160/4.5 MCG INHALER 2 PUFF INH ×2 (07:35→21:55)
[2024-02-22 07:53] LABS: Glucose - Point of Care 144 mg/dl (70-99)
--- NOTE | 2024-02-22 08:23 | PHA.VAN.FU ---
Vancomycin Assessment / Plan
- Assessment
Renal Function: SCR Decreasing
WBC's are: WNL
Concomitant Antimicrobials: aztreonam, metronidazole
- Dosing Plan
Adjust Regimen to: Vanc 1000mg Q12H - dose now then 1800
New Regimen Predicts: AUC (541), Peak (31.2), Trough (15.5)
- Monitoring Plan
No level(s) ordered at this time: consider levels in next few days
- Follow Up
Pharmacy will continue to follow.
Vancomycin Follow UP
- -
Patient Age: 83
Patient Sex: Male
Vancomycin Day #: 2
Indication: Bacteremia
Requesting Provider: Dr. Dumont / Carli
Pertinent Antimicrobial Allergies:
penicillins - anaphylaxis
tetracyclines - rash
Height / Weight:
Height 6 ft
Actual Weight 86 kg
Pertinent Past Medical History: HIV, DM2
- Vital Signs / Lab Results
Temp Pulse Resp BP Pulse Ox
98.2 F 54 20 103/52 89
02/22/24 07:00 02/22/24 07:41 02/22/24 07:41 02/22/24 07:00 02/22/24 07:41
Lab Results - Hematology
02/20/24 02/21/24 02/22/24
09:41 06:01 05:38
WBC 7.8 6.7 5.5
Lab Results - Chemistry
02/20/24 02/21/24 02/22/24
09:41 06:01 05:38
BUN 25 H 23 H 20
Creatinine 1.3 1.0 0.9
Estimated Creat Clear 49 64 71
Albumin 3.4 L 3.3 L 2.6 L
02/20/24 02/20/24 02/20/24
09:41 13:45 16:00
Lactic Acid 1.0 Cancelled Cancelled
Microbiology Results
02/20/24 09:50 Blood Culture - Preliminary
Blood/Venous Escherichia coli
Gram Stain - Preliminary
02/20/24 09:41 Blood Culture - Preliminary
Blood/Venous Escherichia coli
Gram Stain - Preliminary
02/20/24 18:07 Blood Culture - Preliminary
Blood/Venous Positive culture in progress
Gram Stain - Final
02/20/24 09:41 Influenza Types A & B (LAURE) - Final
Nasal Swab Negative for Influenza A & B, NAAT
Negative results must be combined with clinical observations
and patient history.
Nucleic Acid Amplification test (NAAT)performed on the
[employer] platform.
[2024-02-22] MEDS: NSS 1000 IV (10:26)
[2024-02-22] MEDS: VANCOCIN 200 IV (10:26)
[2024-02-22] MEDS: OCUVITE SOFTGEL 1 CAP PO ×2 (10:26→21:02)
[2024-02-22] MEDS: ASPIR LOW (ENTERIC COATED) 81 MG PO (10:26)
--- NOTE | 2024-02-22 11:00 | PTCARENOTE ---
PCT informed RN of RFA vanco infiltrate. Area measured and marked, [id number]. Area red and swollen, patient reports only 'mild pain.' VAT notified. Instructed to apply ice intermittently and elevate. VAT to follow.
[2024-02-22 11:40] LABS: Glucose - Point of Care 165 mg/dl (70-99)
--- NOTE | 2024-02-22 12:37 | W.PN.ID1 ---
Date of Service
Date of Service: February 22, 2024
Today's Communication
- start levofloxacin/metro plan 10 days total of rx
Stable for dc with outpatient follow up for anosocpy and follow up in my clinic in about 2 weeks
Assessment / Plan
E coli bacteremia
Proctitis
- remote history of treated genital warts
Diverticulosis without diverticulitis
HIV - last CD4 10/13: 678, VL undetectable
cleared Hep B, Hep C negative; hep A neg
Possible cirrhosis
Remote history of Lumbar osteomyelitis
Reported history of anaphylaxis to penicillin decades ago
- E coli bacteremia noted - follow for clearance given remote history of osteomyelitis and I suspect endocarditis
- repeat blood cultures x2 in progress no growth to date
- sensi back
- plan outpatient high res anoscopy after this admission - he has not had anal pap x years and does have h/o genital warts
- transaminitis resolved
- CT without other lesions
- start levofloxacin/metro plan 10 days total of rx
- [facility] [place]
- QTc acceptable
- no need for STI screening as celibate xyears
Stable for dc with outpatient follow up for anosocpy and follow up in my clinic in about 2 weeks
Chief Complaint
-: Bacteremia and Other (proctitis)
Subjective / Review of Systems
afebrile about 12 hours
bp stable
wbc remains normal, L shift resolved
cr stable
repeat troponin normalized
sitting up in the chair - I feel better
Vital Signs / Physical Exam
Vital Signs
Vital Signs
Temp Pulse Resp BP Pulse Ox
97.8 F 76 24 119/66 95
02/22/24 11:00 02/22/24 11:00 02/22/24 11:00 02/22/24 11:00 02/22/24 11:00
Physical Exam
Constitutional: No Acute Distress
Cardiovascular: Regular Rate and S1/S2; Negative Murmur or Rub
Pulmonary: Clear and Symmetric; Negative Wheezes or Rales
Gastrointestinal: Soft, Non Tender, Non Distended and Normal Bowel Sounds
Skin: Warm and Dry; Negative Rash or Jaundice
Objective Data
Lab Data
Lab Results
02/22/24 05:38
02/22/24 05:38
ESR 51 mm/hour (0-20) H 02/21/24 06:01
Estimated Creat Clear 71 ml/min 02/22/24 05:38
Lactic Acid Cancelled 02/20/24 16:00
Total Bilirubin 0.8 mg/dl (0.2-1.3) 02/22/24 05:38
AST 53 U/L (17-59) 02/22/24 05:38
ALT 47 U/L (0-50) 02/22/24 05:38
Alkaline Phosphatase 137 U/L (38-126) H 02/22/24 05:38
Most recent labs reviewed.
Blood Culture Preliminary 02/22/24-817
Escherichia coli
Positive for Escherichia coli by [employer]
Acid Methodology.
Organism 1 Escherichia coli
1. Escherichia coli
M.I.C. RX
--------- ---
Amoxicillin/Potas. Clavulanate <=8/4 S
Ampicillin <=8 S
Ampicillin/Sulbactam <=8/4 S
Cefazolin <=2 S
Ertapenem <=0.5 S
Ciprofloxacin <=0.25 S
Gentamicin <=4 S
Levofloxacin <=0.5 S
Meropenem <=1 S
Piperacillin/Tazobactam <=16 S
Tobramycin <=4 S
Trimethoprim/Sulfamethoxazole <=2/38 S
Micro Results:
02/20/24 18:07 Blood Culture - Preliminary
Blood/Venous Escherichia coli
Gram Stain - Final
02/22/24 05:39 Blood Culture - Pending
Blood/Venous
02/20/24 09:50 Blood Culture - Preliminary
Blood/Venous Escherichia coli
Gram Stain - Preliminary
02/20/24 09:41 Blood Culture - Preliminary
Blood/Venous Escherichia coli
Gram Stain - Preliminary
02/22/24 05:38 Blood Culture - Pending
Blood/Venous
02/20/24 09:41 Influenza Types A & B (LAURE) - Final
Nasal Swab Negative for Influenza A & B, NAAT
Negative results must be combined with clinical observations
and patient history.
Nucleic Acid Amplification test (NAAT)performed on the
[employer] platform.
Care Review
Plan reviewed with: Physician (Dr Ethan mora)
--- NOTE | 2024-02-22 12:57 | W.PN.HOSP.TC ---
Today's Communication/Plan
-
monitor vitals
see plan
ID following; doesnt think he needs WONG
cw abx
Assessment / Plan
Assessment / Plan
CT scan abd: 1. Mild circumferential wall thickening in the rectum suspicious for a mild proctitis.
2. Severe colonic diverticulosis (greatest in the sigmoid colon).
3. Mild hepatic cirrhosis.
4. Moderate diffuse hepatic steatosis.
5. Mild splenomegaly containing multiple small low-attenuation lesions (more likely benign than malignancy such as lymphoma).
6. Moderate extrahepatic biliary dilatation.
7. Cholelithiasis.
8. Mild chronic bilateral renal disease.
9. 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
Sepsis secondary to E. coli bacteremia
Possible source proctitis
Repeat blood cultures pending 02/21
Current blood culture with E. coli, pending sensitivities
ID following
echo with mitral annular calcification. Subvalvular mitral calcification. Calcified mobile echodensity associated with posterior mitral valve leaflet which may be related to MAC. Cannot exclude vegetation. ID to evaluate if will need WONG
monitor LFT's. no concern for biliary source at this time; per patient his abdominal pain is getting better. Could also be secondary from proctitis
Hx of HIV for ~25 yrs
states he is compliant with his medication and has normal T-Cell counts
last CD4 10/13: 678, VL undetectable
cleared Hep B, Hep C negative; hep A neg
Hx of osteomyelitis of spine years ago
NIDDM
Standing scale, Accu-Cheks
A1c 7.6
Elevated troponin, likely nonischemic myocardial injury
Trend
History of possible cirrhosis
History of rheumatoid arthritis
BPH
Continue tamsulosin
Anaphylactic rxn to PCN
DVTppx
Lovenox
DNR
General: No Apparent Distress and Comfortable
HEENT: Normocephalic, Atraumatic and Moist Mucous Membranes
Respiratory: Clear to Auscultation; Negative Wheezes
Cardiac: Regular Rhythm and S1/S2
GI: Soft
Genito-urinary: Negative Lowe
Musculoskeletal: No Edema
Neuro: Awake, Alert, Oriented and AO x 3
Psych: Calm
Anticipated Discharge: 24 - 48 hours
Subjective/Interval History
-
Date of Service: February 22, 2024
denies pain
Objective Data
-
Labs:
Laboratory Results
02/22/24
05:38
WBC 5.5
Hgb 11.9 L
Hct 33.2 L
Plt Count 112 L
Sodium 136
Potassium 3.8
Chloride 109 H
Carbon Dioxide 19 L
BUN 20
Creatinine 0.9
Glucose 136 H
Calcium 8.3 L
Total Bilirubin 0.8
AST 53
ALT 47
Alkaline Phosphatase 137 H
Vital Signs:
Vital Signs
Temp Pulse Resp BP Pulse Ox
97.8 F 76 24 119/66 95
02/22/24 11:00 02/22/24 11:00 02/22/24 11:00 02/22/24 11:00 02/22/24 11:00
I&O
02/21/24 02/22/24 02/23/24
06:59 06:59 06:59
Intake Total 2340 / 2340
Output Total 500 / 500
Balance 1840 / 1840
[2024-02-22] MEDS: STERILE WATER FOR INJECTION IV ×3 (13:00→21:23)
[2024-02-22] MEDS: AZACTAM IV (13:01)
[2024-02-22] MEDS: FLAGYL 500 MG IV (13:01)
[2024-02-22] MEDS: LEVAQUIN 750 MG PO (13:15)
--- NOTE | 2024-02-22 15:06 | PTCARENOTE ---
Redness, swelling to RFA improved, although redness now extending proximally. Patient reports minimal to no pain. Provided w/ ice and elevated.
[2024-02-22 17:51] LABS: Glucose - Point of Care 131 mg/dl (70-99)
[2024-02-22] MEDS: NON-FORMULARY ITEM PO (17:59)
--- NOTE | 2024-02-22 18:18 | PTCARENOTE ---
FONSECA after returning from bathroom. Audible expiratory wheeze. SaO2 95% on room air. Provided w/ rachel.
[2024-02-22] MEDS: CRESTOR 10 MG PO (21:02)
[2024-02-22] MEDS: FLAGYL 500 MG PO (21:02)
[2024-02-22] MEDS: PROSCAR 5 MG PO (21:02)
[2024-02-22] MEDS: FLOMAX 0.800000000000000044 MG PO (21:02)
[2024-02-22] MEDS: ZETIA 10 MG PO (21:18)
[2024-02-22] MEDS: TRICOR 145 MG PO (21:18)
[2024-02-22 21:53] LABS: Glucose - Point of Care 168 mg/dl (70-99)
[2024-02-23 02:54] VITALS: BP 121/72
[2024-02-23] MEDS: DUONEB 3 ML INH (02:57)
[2024-02-23 03:09] LABS: % Basophils 0.2 % (0-2); % Eosinophils 2.6 % (0-6); % Immature Granulocytes 0.2 % (0-0.5); % Lymphocytes 14.1 % (20.5-51.1); % Monocytes 5.2 % (1.7-9.3); % Neutrophils 77.7 % (42.2-75.2); Absolute Eosinophils 0.1 10^3/uL (0-0.7); Absolute Lymphocytes 0.6 10^3/uL (1.2-3.4); Absolute Monocytes 0.2 10^3/uL (0.1-0.6); Absolute Neutrophils 3.3 10^3/uL (1.4-6.5); Hematocrit 34.8 % (39.0-52.0); Hemoglobin 12.4 g/dL (13.0-18.0); Mean Corp Hgb Conc. 35.6 g/dL (33.0-37.0); Mean Corpuscular Hgb 32.5 pg (27.0-31.0); Mean Corpuscular Volume 91.1 fL (80.0-94.0); Mean Platelet Volume 9.7 fL (7.4-10.4); Nucleated Red Blood Cells % 0 % (-); Platelet Count 132 10^3/uL (130-400); Red Blood Cell Count 3.82 10^6/uL (4.70-6.10); Red Cell Dist. Width 14.9 % (11.5-14.5); White Blood Cell Count 4.3 10^3/uL (4.8-10.8)
[2024-02-23 03:29] LABS: ALT (SGPT) 48 U/L (0-50); AST (SGOT) 55 U/L (17-59); Albumin 2.5 g/dl (3.5-5.0); Alkaline Phosphatase 148 U/L (38-126); Blood Urea Nitrogen 15 mg/dl (9-20); Calcium 8.5 mg/dl (8.4-10.2); Carbon Dioxide 19 mmol/L (22-30); Chloride 112 mmol/L (98-107); Estimated Creatinine Clearance 71 ml/min; Glucose 138 mg/dl (70-99); Potassium 4.1 mmol/L (3.5-5.1); Sodium 137 mmol/L (135-145); Total Bilirubin 1.1 mg/dl (0.2-1.3); Total Protein 4.9 g/dl (6.3-8.2); eGFR > 60.00
[2024-02-23] MEDS: SYMBICORT 160/4.5 MCG INHALER INH (08:27)
[2024-02-23 08:51] VITALS: BP 134/57
[2024-02-23] MEDS: OCUVITE SOFTGEL 1 CAP PO (08:55)
[2024-02-23] MEDS: ASPIR LOW (ENTERIC COATED) 81 MG PO (08:56)
[2024-02-23] MEDS: FLAGYL 500 MG PO (08:56)
[2024-02-23] MEDS: LEVAQUIN 750 MG PO (08:56)
[2024-02-23] MEDS: LASIX 20 MG IV (08:58)
[2024-02-23 09:01] LABS: Glucose - Point of Care 125 mg/dl (70-99)
--- NOTE | 2024-02-23 09:15 | W.PN.HOSP.TC ---
Today's Communication/Plan
-
Monitor vitals
See plan
Dose of IV Lasix today
Continued antibiotics
Discharge today
time of discharge 37minutes
Assessment / Plan
Assessment / Plan
CT scan abd: 1. Mild circumferential wall thickening in the rectum suspicious for a mild proctitis.
2. Severe colonic diverticulosis (greatest in the sigmoid colon).
3. Mild hepatic cirrhosis.
4. Moderate diffuse hepatic steatosis.
5. Mild splenomegaly containing multiple small low-attenuation lesions (more likely benign than malignancy such as lymphoma).
6. Moderate extrahepatic biliary dilatation.
7. Cholelithiasis.
8. Mild chronic bilateral renal disease.
9. 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
Sepsis secondary to E. coli bacteremia
Possible source proctitis
Current blood culture with E. coli, now on levaquin and flagyl. new bcx 02/21 NGTD
ID following
echo with mitral annular calcification. Subvalvular mitral calcification. Calcified mobile echodensity associated with posterior mitral valve leaflet which may be related to MAC. Cannot exclude vegetation. per ID most likely calcification and no
WONG needed
monitor LFT's. no concern for biliary source at this time; per patient his abdominal pain is getting better. Could also be secondary from proctitis
Hx of HIV for ~25 yrs
states he is compliant with his medication and has normal T-Cell counts
last CD4 10/13: 678, VL undetectable
cleared Hep B, Hep C negative; hep A neg
Hx of osteomyelitis of spine years ago
hx of COPD; not in exacerbation
hx of CHFpEF
follows up with dr freitas outpatient
does not appear to be in exacerbation
suspect mild iatrogenic fluid overload
missed couple days PO lasix; will do dose of IV lasix today
NIDDM
Standing scale, Accu-Cheks
A1c 7.6
Elevated troponin, likely nonischemic myocardial injury
Trend
History of possible cirrhosis
History of rheumatoid arthritis
BPH
Continue tamsulosin
Anaphylactic rxn to PCN
DVTppx
Lovenox
DNR
General: No Apparent Distress and Comfortable
HEENT: Normocephalic, Atraumatic and Moist Mucous Membranes
Respiratory: Clear to Auscultation; Negative Wheezes
Cardiac: Regular Rhythm and S1/S2
GI: Soft
Genito-urinary: Negative Lowe
Musculoskeletal: No Edema
Neuro: Awake, Alert, Oriented and AO x 3
Psych: Calm
Anticipated Discharge: Today
Subjective/Interval History
-
Date of Service: February 23, 2024
denies pain
Objective Data
-
Labs:
Laboratory Results
02/23/24
03:01
WBC 4.3 L
Hgb 12.4 L
Hct 34.8 L
Plt Count 132
Sodium 137
Potassium 4.1
Chloride 112 H
Carbon Dioxide 19 L
BUN 15
Creatinine 0.9
Glucose 138 H
Calcium 8.5
Total Bilirubin 1.1
AST 55
ALT 48
Alkaline Phosphatase 148 H
Vital Signs:
Vital Signs
Temp Pulse Resp BP Pulse Ox
98.2 F 68 16 134/57 94
02/23/24 08:51 02/23/24 08:51 02/23/24 08:51 02/23/24 08:51 02/23/24 08:51
I&O
02/22/24 02/23/24 02/24/24
06:59 06:59 06:59
Intake Total 2340 / 2340
Output Total 500 / 500 600 / 600
Balance 1840 / 1840 -600 / -600
--- NOTE | 2024-02-23 09:23 | W.DCSUMMARY ---
Discharge Summary
Discharge Data
Date of Admission: 02/20/24
Date of Discharge: 02/23/24
-
Pending Results: Yes
Hospital Course
83-year-old male with past medical history of COPD, CHF, [id number] diabetes mellitus, possible cirrhosis, rheumatoid arthritis, BPH, osteomyelitis, HIV came to the hospital with sepsis secondary to E. coli bacteremia. Possible source
was suspected to be proctitis. Patient was seen by infectious disease throughout hospitalization. Echocardiogram was done which showed mitral valve calcification. There was also calcified mobile echo density which infectious disease did not
thought that its vegetation so no WONG was done. Patient also appeared to have mild iatrogenic fluid overload for which she was given IV Lasix prior to discharge. Once patient symptoms continue to improve, infectious disease then transition his
antibiotics to oral and instructed him to follow-up with them closely outpatient.
Discharge Plan
-
Patient Disposition: Home (Routine Discharge)
Discharge Diagnosis/Procedures: Sepsis secondary to E. coli bacteremia
Proctitis
Condition: Good
Diet: As tolerated
Activity: As tolerated
Driving Restrictions: As prior to admission
Bathing Restrictions: None
Others Tests: need anoscopy outpatient
Referrals:
NONE,* [Family Provider] - in less than 1 week
Petrona Boyce MD [Active] -
Jesu Connolly MD [Active] -
Prescriptions:
New
metronidazole 500 mg Tablet
500 mg PO BID Qty: 16 0RF
levofloxacin 750 mg Tablet
750 mg PO DAILY Qty: 8 0RF
albuterol sulfate 90 mcg/actuation HFA aerosol inhaler
2 puff inhalation Q6H PRN (Reason: shortness of breath or wheezing) Qty: 8.5 0RF
Continued
potassium chloride 10 mEq capsule, extended release
10 meq PO DAILY
aspirin 81 mg Tablet,Delayed Release (Dr/Ec)
81 mg PO DAILY
methotrexate sodium 2.5 mg tablet
7.5 mg PO MAHER
tamsulosin 0.4 mg capsule
0.8 mg PO HS
folic acid 1 mg Tablet
1 mg PO MOTUWETHFRSA
furosemide 20 mg tablet
20 mg PO DAILY
metoprolol succinate 25 mg tablet extended release 24 hr
25 mg PO DAILY PRN (Reason: discomfort/blood pressure)
zolpidem 10 mg tablet
10 mg PO HS
Patient Comments:
02/20/2024: last filled 11/01/23, 30 tabs for 60 ays from [facility]
metformin 500 mg tablet extended release 24 hr
500 mg PO QPM
finasteride 5 mg tablet
5 mg PO HS
ezetimibe 10 mg tablet
10 mg PO HS
rosuvastatin 20 mg tablet
10 mg PO HS
omega-3 acid ethyl esters 1 gram capsule
1 g PO BID
PreserVision AREDS 4,296 mcg-226 mg-90 mg Capsule
1 cap PO BID
fluticasone furoate-vilanterol [Breo Ellipta] 200-25 mcg/dose blister with device
1 inh INHALATION R DAILY
Odefsey 200-25-25 mg tablet
1 tab PO QPM
fenofibrate 160 mg Tablet
160 mg PO HS
Discharge Orders:
Discharge Patient (As Directed); Ordered 02/23/24
Ordered By: Nader Long
Discharge Date and Time
Discharge Date/Time: 02/23/24 10:31
Print Language: [place]
[2024-02-23] MEDS: STERILE WATER FOR INJECTION IV (09:28)
[2024-02-23 10:30] VITALS: BP 124/62
== END 2024-02-23 10:31 | disposition home or self-care (01) | DRG 872 ==
LOC: ED 18:31
PROVIDERS: Nurse Practitioner; ADMITTING PHYSICIAN Internal Medicine; ATTENDING PHYSICIAN Internal Medicine; CONSULT PHYSICIAN Internal Medicine Infectious Disease; EMERGENCY PHYSICIAN Emergency Medicine
DX: A41.51 Sepsis due to Escherichia coli [E. coli] (principal); I5A Non-ischemic myocardial injury (non-traumatic); I48.0 Paroxysmal atrial fibrillation; E11.9 Type 2 diabetes mellitus without complications; Z21 Asymptomatic human immunodeficiency virus [HIV] infection status; K62.89 Other specified diseases of anus and rectum; J44.9 Chronic obstructive pulmonary disease, unspecified; I34.0 Nonrheumatic mitral (valve) insufficiency; I25.10 Atherosclerotic heart disease of native coronary artery without angina pectoris; E78.5 Hyperlipidemia, unspecified; Z66 Do not resuscitate; Z79.51 Long term (current) use of inhaled steroids; Z79.84 Long term (current) use of oral hypoglycemic drugs
CPT/HCPCS: 71046; 73502; 74177; 80053; 81003; 81015; 82962; 83036; 83605; 84484; 85025; 85652; 87040; 87149; 87186; 87205; 87502; 87811; 93005; 93306; 94640; 96360; 99285; Q9967

== ENCOUNTER → 2024-03-03 18:36 | Outpatient (REF) | payer MEDICARE, OTHER, SELFPAY ==
[2024-03-08 10:12] LABS: HPV, High Risk Not Detected; HPV, High Risk Source Anal
== END ==
LOC: CLAB 18:36
PROVIDERS: ATTENDING PHYSICIAN Physician Assistant
DX: B20 Human immunodeficiency virus [HIV] disease (principal)
CPT/HCPCS: 87624; 88112

== ENCOUNTER 2024-04-18 11:18 | Emergency (ER) | payer MEDICARE, OTHER, SELFPAY ==
[2024-04-18 11:24] VITALS: BP 126/86
[2024-04-18] MEDS: OMNICEF 300 MG PO (12:30)
--- NOTE | 2024-04-18 13:12 | ED.GENMED ---
History of Present Illness
General
Chief Complaint: Musculo-Skeletal Complaint
Source: patient
Exam Limitations: none
Time Seen by Provider: 04/18/24 11:33
Nursing documentation reviewed up to this point in time: agreed with
History of Present Illness
History of Present Illness:
83-year-old male with past medical history of well-controlled HIV borderline diabetes, CAD presenting to the emergency department today with swelling to the leg for the past 2 days systemic symptoms does not cross the ankle.
Review of Systems
Review of Systems
Allergies reviewed?: Yes
All Other Systems: ROS reviewed and negative except as documented in HPI and ROS
Phy Exam
Physical Exam
Physical Exam:
GENERAL: Alert , in no apparent distress
EYE: pupils equal and reactive
NECK: Supple, no significant adenopathy.
ENT: o/p clr, mmm.
CARDIAC: Regular rate and rhythm .
LUNGS: Clear breath sounds bilaterally, no acute respiratory distress, no wheezes/rales/rhonchi
ABDOMEN: Soft, without focal tenderness, no r/g, no cvat
NEUROLOGICAL: Alert and oriented, no focal neuro deficits
SKIN: Warm and dry, skin intact.
MUSCULOSKELETAL redness swelling and tender palpation throughout the right on the sole is across the ankle no fluctuance or induration otherwise well perfused.
PSYCH: Normal and appropriate interaction.
Course
Orders/Labs/Results
Orders:
Orders
04/18/24 11:27
Foot, Right 3 View [CR Foot - Right Min 3 Views] Urgent
Comment:
Reason For Exam: bruising/swelling
04/18/24 12:22
Cefdinir [Omnicef] 300 mg PO NOW STA
Vital Signs
Initial and Last Documented VS:
Initial Vital Signs
Temp Pulse Resp BP Pulse Ox
98.7 F 61 17 126/86 95
04/18/24 11:24 04/18/24 11:24 04/18/24 11:24 04/18/24 11:24 04/18/24 11:24
Last Documented Vital Signs
Temp Pulse Resp BP Pulse Ox
98.7 F 61 17 126/86 95
04/18/24 11:24 04/18/24 11:24 04/18/24 11:24 04/18/24 11:24 04/18/24 11:24
MDM/Problems Addressed
MDM/Problems Addressed:
83-year-old male presenting to the emergency department today with concerns of redness swelling discomfort to the right foot no specific preceding injury. Otherwise vital signs normal no systemic symptoms. Concern for potential early cellulitis to
the area actually acute abnormalities on his current antibiotic and close outpatient follow-up. Return precautions given.
*Critical Care Note
Total Time (30-74mins, 75-104mins- exclusive of procedures): Not Applicable
ED Attending Note
-
Portions of this chart may have been created with voice recognition software.� Occasional wrong word or��sound alike� substitutions may have occurred due to the inherent limitations of voice recognition software.
Discharge Plan
Departure
Patient Disposition: Home (Routine Discharge)
Date of Disposition: 04/18/24
Time of Disposition: 13:13
Patient with high blood pressure during this ER visit?: No
Condition: Good
Covid-19: Not Applicable
Discharge Problem:
Cellulitis of foot
Instructions: Cellulitis (Skin Infection), Adult ED
Prescriptions:
New
cefpodoxime 200 mg tablet
400 mg PO BID 7 Days Qty: 28 0RF
No Action
potassium chloride 10 mEq capsule, extended release
10 meq PO DAILY
aspirin 81 mg Tablet,Delayed Release (Dr/Ec)
81 mg PO DAILY
methotrexate sodium 2.5 mg tablet
7.5 mg PO MAHER
tamsulosin 0.4 mg capsule
0.8 mg PO HS
folic acid 1 mg Tablet
1 mg PO MOTUWETHFRSA
furosemide 20 mg tablet
20 mg PO DAILY
metoprolol succinate 25 mg tablet extended release 24 hr
25 mg PO DAILY PRN (Reason: discomfort/blood pressure)
zolpidem 10 mg tablet
10 mg PO HS
Patient Comments:
02/20/2024: last filled 11/01/23, 30 tabs for 60 ays from [facility]
metformin 500 mg tablet extended release 24 hr
500 mg PO QPM
finasteride 5 mg tablet
5 mg PO HS
ezetimibe 10 mg tablet
10 mg PO HS
rosuvastatin 20 mg tablet
10 mg PO HS
omega-3 acid ethyl esters 1 gram capsule
1 g PO BID
PreserVision AREDS 4,296 mcg-226 mg-90 mg Capsule
1 cap PO BID
fluticasone furoate-vilanterol [Breo Ellipta] 200-25 mcg/dose blister with device
1 inh INHALATION R DAILY
Odefsey 200-25-25 mg tablet
1 tab PO QPM
fenofibrate 160 mg Tablet
160 mg PO HS
metronidazole 500 mg Tablet
500 mg PO BID Qty: 16 0RF
levofloxacin 750 mg Tablet
750 mg PO DAILY Qty: 8 0RF
albuterol sulfate 90 mcg/actuation HFA aerosol inhaler
2 puff inhalation Q6H PRN (Reason: shortness of breath or wheezing) Qty: 8.5 0RF
Referrals:
[facility] [Provider Group]
NONE,* [Family Provider] -
Activity Restrictions/Additional Instructions:
You came to the emergency department today for concerns of redness swelling discomfort to your right foot. This is likely an infection. Please take the prescribed antibiotics and follow-up closely in the next few days for reassessment.
Immediately return to the emergency department any worsening, new or concerning symptoms.
Interventions
Interventions:
*Risk Screen - Suicide Last Done: 04/18/24 11:24
*General Assessment Last Done: 04/18/24 11:24
*Neglect/Abuse Screening Last Done: 04/18/24 11:24
ED- Fall Risk Assessment Last Done: 04/18/24 11:43
ED-Musculoskeletal Assessment Last Done: 04/18/24 11:43
Discharge Date and Time
Print Language: BELIZEAN
== END 2024-04-18 13:22 | disposition home or self-care (01) ==
LOC: EMR 11:18
PROVIDERS: EMERGENCY PHYSICIAN Emergency Medicine
DX: L03.115 Cellulitis of right lower limb (principal); I25.10 Atherosclerotic heart disease of native coronary artery without angina pectoris; Z21 Asymptomatic human immunodeficiency virus [HIV] infection status
CPT/HCPCS: 99283; 73630

== ENCOUNTER → 2025-03-15 13:50 | Outpatient (REF) | payer MEDICARE, OTHER, SELFPAY | LOC: RCS 13:50 | PROVIDERS: ATTENDING PHYSICIAN Internal Medicine | DX: I25.10 Atherosclerotic heart disease of native coronary artery without angina pectoris (principal); I34.0 Nonrheumatic mitral (valve) insufficiency; I35.1 Nonrheumatic aortic (valve) insufficiency; I35.0 Nonrheumatic aortic (valve) stenosis; I34.2 Nonrheumatic mitral (valve) stenosis | CPT/HCPCS: 93306 ==